=== PATIENT | female | born 2000 | race Caucasian/White ===

== ENCOUNTER 2024-06-30 12:46 | Outpatient (CLI) | payer OTHER, SELFPAY ==
--- NOTE | ~2024-06-30 | US_ITS ---
EXAMINATION: US OB <= 14 weeks fetus DATE: 06/30/2024 13:03 INDICATION: Missed . TECHNIQUE: Real-time transabdominal pelvic ultrasound was performed. COMPARISON: Ultrasound 06/23/2024 FINDINGS: The uterus measures 9.0 x 5.0 x 6.4 cm. There is no intrauterine gestational sac. The endometrial com plex measures 9 mm in thickness. The right ovary measures 4.5 x 1.6 x 2.4 cm. The left ovary measures 2.8 x 1.5 x 2.3 cm. There is no free fluid in the pelvis. IMPRESSION: 1. No retained products of conception. Reviewed, dictated and finalized at location A. [facility]
== END 2024-06-30 12:47 | disposition home or self-care (01) ==
LOC: MICIMG 12:46
PROVIDERS: PCP Pediatrics; Visit Provider Obstetrics & Gynecology
DX: O02.1 Missed abortion (principal); Z3A.00 Weeks of gestation of pregnancy not specified
CPT/HCPCS: 76801

== ENCOUNTER 2024-07-05 09:02 | Outpatient (CLI) | payer OTHER, SELFPAY ==
--- OUTSIDE RECORDS SUMMARY | 2024-07-05 11:43 | XMS_ITS | Encounter Summary ---
Author Organization [facility] Address [address] [place] [address] Care Team Providers Care Consulting Technical Director Name Role Phone Lorenzo Martin MD Primary Care Provider [phone] Encounter Details Date Type Department Care Team (Late st Contact Info) Description 05/09/2020 Prep for Procedure [facility] Day [facility] [address] [place] [address] [place] [address] [facility] [address] [place] [address] Social History Tobacco Use Types Packs/Day Years Used Date Smoking Tobacco: Never Smokeless Tobacco: Never Alcohol Use Standard Drinks/Week Comments No 0 (1 standard drink = 0.6 oz pur e alcohol) AUDIT-C Answer Date Recorded Frequency of Alcohol Consumption Never 08/18/2018 Average Number of Drinks Not on file 019 Frequency of Binge Drinking Not on file 06/2018 PHQ-2 Answer Date Recorded PHQ-2 Score 0 07/06/2019 Education Answer Date Recorded What is the highest level of school you have completed or the highest degree you have received? Some college, no degree 07/06/2019 Comments No Sex and Gender Information Value Date Recorded Sex Assigned at Female 06/07/2024 8:33 AM WRAPPER HAND Legal Sex Female 8:52 PM CDT Gender Identity Not on file Sexual Orientation Not on file COVID-19 Exposure Response Date Recorded In the last month, have you been in contact with someone who was confirmed or suspected to have Coronavirus / COVID-19? No / Unsure 04/09/2020 6:27 AM WRAPPER HAND documented as of this encounter Plan of Treatment Not on file documented as of this encounter Results * PRE-SURGICAL/PRE-PROCEDURE CORONAVIRUS (COVID 19) (05/14/2020 8:00 AM WRAPPER HAND) CORONAVIRUS SARS COV 2 PCR (RESP) NOT DETECTED NOT DETECTED 05/15/2020 2:37 PM WRAPPER HAND [facility] Comment: A Not Detected (negative) test result for this test means that SARS- CoV-2 RNA was not present in the specimen above the limit of detection. A negative result does not rule out the possibility of COVID-19 and should not be used as the sole basis for treatment or patient management decisions. If COVID-19 is still suspected, based on exposure history together with other clinical findings, re-testing should be considered in consultation with public health authorities. Laboratory test results should always be considered in the context of clinical observations and epidemiological data in making a final diagnosis and patient management decisions. Please review the Fact Sheets and FDA authorized labeling available for health care providers and patients using the following websites: https://www.[employer].com/home/Covid-19/HCP/Quest[facility]/fact- sheet.html https://www.[employer] Game/home/Covid-19/Patients/ Quest[employer]/fact-sheet.html This test has been authorized by the FDA under an Emergency Use Authorization (EUA) for use by authorized laboratories. Due to the current public health emergency, [facility] is receiving a high volume of samples from a wide variety of swabs and media for COVID-19 testing. In order to serve patients during this public health crisis, samples from appropriate clinical sources are being tested. Negative test results derived from specimens received in non-commercially manufactured viral collection and transport media, or in media and sample collection kits not yet authorized by FDA for COVID-19 testing should be cautiously evaluated and the patient potentially subjected to extra precautions such as additional clinical monitoring, including collection of an additional specimen. Methodology: Nucleic Acid Amplification Test (NAAT) includes RT-PCR or TMA Additional information about COVID-19 can be found at the [facility] website: www.Park[employer].com/Covid19. Test performed at [facility] [address] [place] [address] Director: SUSAN DAWSON DO,MPH FIRST TEST NO 05/14/2020 1:24 PM WRAPPER HAND [facility] EMPLOYED IN HEALTHCARE NO 05/14/2020 1:24 PM WRAPPER HAND [facility] SYMPTOMATIC DEFINED BY CDC NO 05/14/2020 1:24 PM WRAPPER HAND [facility] DATE OF SYMPTOM ONSET UNKNOWN 05/14/2020 1:28 PM WRAPPER HAND [facility] HOSPITALIZATION STATUS NO 05/14/2020 1:24 PM WRAPPER HAND [facility] PATIENT IN ICU NO 05/14/2020 1:24 PM WRAPPER HAND [facility] RESIDENT OF [facility] NO 05/14/2020 1:24 PM WRAPPER HAND [facility] NOT 05/14/2020 1:24 PM WRAPPER HAND [facility] PATIENT'S RACE WHITE OR 05/14/2020 1:24 PM WRAPPER HAND [facility] ETHNICITY NONHISPANIC 05/14/2020 1:24 PM WRAPPER HAND [facility] SOURCE (QST) NASOPHARYNGEAL SWAB 05/14/2020 1:24 PM WRAPPER HAND [facility] NASOPHARYNGEAL SWAB / Unknown 05/14/2020 8:00 AM WRAPPER HAND us Martín Emerson MD MICROBIOLOGY - GENERAL ORDERABLES Final Result [facility] [address] [place] [address], [facility] [address] [place] [address], documented in this encounter Visit Diagnoses Diagnosis Pre-op testing- Primary Preoperative examination, unspecified documented in this encounter Additional Health Concerns Infection Onset Date Last Indicated Resolved Time COVID-19 Rule Out 05/14/2020 05/14/2020 05/15/2020 2:38 PM WRAPPER HAND documented as of this encounter Care Teams Consulting Technical Director Relationship Specialty [place] [address] [place] [address] PCP - General FAMILY PRACTICE 08/05/18 documented as of this encounter
--- OUTSIDE RECORDS SUMMARY | 2024-07-05 11:43 | XMS_ITS | Encounter Summary ---
Author Organization [facility] Address [address] [place] [address] Care Team Providers Care Molasses Preparer Name Role Phone Lorenzo Martin MD Primary Care Provider [phone] Encounter Details Date Type Department Care Team (Late st Contact Info) Description 04/07/2020 Prep for Procedure [facility] Day [facility] [address] [place] [address] Martín [place] [address] [facility] [address] [place] [address] Social History Tobacco Use Types Packs/Day Years [...] Sex Assigned at Female 06/07/2024 8:33 AM JEWEL HOLE GAUGER Legal Sex Female 8:52 PM CDT Gender Identity Not on file Sexual Orientation Not on file COVID-19 Exposure Response Date Recorded In the last month, have you been in contact with someone who was confirmed or suspected to have Coronavirus / COVID-19? No / Unsure 04/09/2020 6:27 AM JEWEL HOLE GAUGER documented as of this encounter Plan of Treatment Not on file documented as of this encounter Results * PRE-SURGICAL/PRE-PROCEDURE CORONAVIRUS (COVID 19) (04/09/2020 9:23 AM JEWEL HOLE GAUGER) CORONAVIRUS SARS COV 2 PCR (RESP) NOT DETECTED NOT DETECTED 04/10/2020 1:46 PM JEWEL HOLE GAUGER [facility] Comment: A Not Detected (negative) test result [...] providers and patients using the following websites: https://www.[employer].com/home/Covid-19/HCP/QuestIVD/fact- sheet.html https://www.[employer]/home/Covid-19/Patients/ Quest[facility]D/fact-sheet.html This test has been authorized by the FDA under an Emergency Use Authorization (EUA) for use by authorized laboratories. Due to the current public health emergency, [facility] is receiving a high volume of samples [...] about COVID-19 can be found at the [facility] website: www.Beyond Alpha.com/Covid19. Test performed at [facility] [address] [place] [address] Director: SUSAN DAWSON DO,MPH FIRST TEST YES 04/09/2020 6:28 AM JEWEL HOLE GAUGER [facility] EMPLOYED IN HEALTHCARE NO 04/09/2020 6:28 AM [facility] SYMPTOMATIC DEFINED BY CDC NO 04/09/2020 6:28 AM JEWEL HOLE GAUGER [facility] DATE OF SYMPTOM ONSET UNKNOWN 04/09/2020 9:35 AM JEWEL HOLE GAUGER [facility] HOSPITALIZATION STATUS NO 04/09/2020 6:28 AM JEWEL HOLE GAUGER [facility] PATIENT IN ICU NO 04/09/2020 6:28 AM [facility] RESIDENT OF [facility] NO 04/09/2020 6:28 AM [facility] NOT 04/09/2020 6:28 AM [facility] PATIENT'S RACE WHITE OR 04/09/2020 6:28 AM [facility] ETHNICITY NONHISPANIC 04/09/2020 6:28 AM [facility] SOURCE (QST) NASOPHARYNGEAL SWAB 04/09/2020 6:28 AM [facility] NASOPHARYNGEAL SWAB / Unknown 04/09/2020 9:23 AM JEWEL HOLE GAUGER us Martín Emerson MD MICROBIOLOGY - GENERAL ORDERABLES Final Result [facility] [address] [place] [address], [facility] [address] [place] [address], documented in this encounter Visit Diagnoses Diagnosis Pre-op testing- Primary Preoperative examination, unspecified documented in this encounter Additional Health Concerns Infection Onset Date Last Indicated Resolved Time COVID-19 Rule Out 04/09/2020 04/09/2020 04/10/2020 1:46 PM JEWEL HOLE GAUGER COVID-19 Rule Out 05/14/2020 05/14/2020 05/15/2020 2:38 PM JEWEL HOLE GAUGER documented as of this encounter Care Teams Molasses Preparer Relationship Specialty [place] [address] [place] [address] PCP - General FAMILY PRACTICE 08/05/18 documented as of this encounter
--- OUTSIDE RECORDS SUMMARY | 2024-07-05 11:43 | XMS_ITS | Encounter Summary ---
Author Organization [facility] Address [address] [place] [address] Care Team Providers Care Automation And Controls Supervisor Name Role Phone Lorenzo Martin MD Primary Care Provider [phone] Encounter Details Date Type Department Care Team (Late st Contact Info) Description 07/12/2014 Abstract [facility] CONVERSION [address] [place] [address] , Generic [facility] Social History Tobacco Use Types Packs/Day Years Used Date Smoking Tobacco: Never Assessed Comments Unknown Sex and Gender Information Value Date Recorded Sex Assigned at Female 06/07/2024 8:33 AM GEOTECHNICAL DEPARTMENT MANAGER Legal Sex Female 8:52 PM CDT Gender Identity Not on file Sexual Orientation Not on file documented as of this encounter Plan of Treatment Not on file documented as of this encounter Visit Diagnoses Not on filedocumented in this encounter Additional Health Concerns Infection Onset Date Last Indicated Resolved Time COVID-19 Rule Out 04/09/2020 04/09/2020 04/10/2020 1:46 PM GEOTECHNICAL DEPARTMENT MANAGER COVID-19 Rule Out 05/14/2020 05/14/2020 05/15/2020 2:38 PM GEOTECHNICAL DEPARTMENT MANAGER documented as of this encounter Care Teams Automation And Controls Supervisor Relationship Specialty [place] [address] [place], [place] [id number] PCP - General FAMILY PRACTICE 08/05/18 documented as of this encounter
--- OUTSIDE RECORDS SUMMARY | 2024-07-05 11:43 | XMS_ITS | Encounter Summary ---
Author Organization [facility] Address [address] [place] [address] Care Team Providers Care Senior Security Analyst Name Role Phone Lorenzo Martin MD Primary Care Provider [phone] Encounter Details Date Type Department Care Team (Late st Contact Info) Description 08/20/2023 Availendart Message Enc [facility] Family & Internal Medicine [address] [phone] Lorenzo Martin MD [address] [place] [address] Jayashree Brooks - neck/shoulder pain Social History Tobacco Use Types Packs/Day Years Used Date Smoking Tobacco: Never Smokeless Tobacco: Never Alcohol Use Standard Drinks/Week Comments Yes 0 (1 standard drink = 0.6 oz pur e alcohol) occasional AUDIT-C Answer Date Recorded Frequency of Alcohol Consumption Never 08/18/2018 Average Number of Drinks Not on file 019 Frequency of Binge Drinking Not on file 06/2018 PHQ-2 Answer Date Recorded PHQ-2 Score - If the patient scores above 3, please move on to questions 3-9 0 12/14/2021 Education Answer Date Recorded What is the highest level of school you have completed or the highest degree you have received? Some college, no degree 07/06/2019 Comments No Sex and Gender Information Value Date Recorded Sex Assigned at Female 06/07/2024 8:33 AM DROSSER Legal Sex Female 8:52 PM CDT Gender Identity Not on file Sexual Orientation Not on file documented as of this encounter Progress Notes * Shelbie Sommer RN - 08/21/2023 11:49 AM CDT Please advise. Thank you! * Darlene Raoy RN - 08/21/2023 10:56 AM CDT [place] patient. documented in this encounter Plan of Treatment Not on file documented as of this encounter Visit Diagnoses Not on filedocumented in this encounter Additional Health Concerns Assessment Noted Time PHQ-9 Depression Total Score: 0 12/15/19 22 1:01 PM CDT documented as of this encounter Care Teams Senior Security Analyst Relationship Specialty [place] [address] [place] [address] PCP - General FAMILY PRACTICE 08/05/18 documented as of this encounter
--- OUTSIDE RECORDS SUMMARY | 2024-07-05 11:43 | XMS_ITS | Clinical Summary ---
Author Organization [facility] Address [address] [place] [address] Care Team Providers Care Prepared Foods Service Team Member Name Role Phone Lorenzo Martin MD Primary Care Provider [phone] Allergies No known active allergies Medications No known medications Active Problems Problem Noted Date Diagnosed Date Gastritis determined by endoscopy 05/17/2020 Epigastric pain 04/03/2020 Overview (04/03/2020): Added automatically from request for surgery [id number] Sprain of interphalangeal joint of left thumb Hand joint pain 02/24/2012 Closed fracture of shaft of radius with ulna 08/2008 Resolved Problems Problem Noted Date Diagnosed Date Resolved Date Routine or child health check 02/24/2012 01/28/2020 Encounters Date Type Department Care Team Description 06/07/2024 8:30 AM LOGISTICAL ENGINEER - 06/07/2024 11:59 PM [facility] En[facility] [address] [place] [address] Jorge Telles MD Discharge Disposition: Home or Self Care (Routine Discharge) 06/07/2024 Orders Only [facility] [address] [place] [address] Jorge Telles MD 06/07/2024 Travel from Last 3 Months Immunizations Name Administration Dates Next Due Dtap (Acel-Immune) 2000,2000 Dtap (Generic) 2000,2000 Fluzone 6 Months+ Quad (0.5 mL Prefilled Syringe) 03/13/2020(Deferred: Patient Refused) HPV 05/14/2012,12/24/2011,10/22/2011 HPV4 (Gardasil) 05/14/2012,12/24/2011,10/22/2011 Hib-Hepatitis B (Comvax) 2000,2000 Influenza Adult (Generic) 03/04/2019 Meningococcal (Menactra) 02/07/2017,10/22/2011 Meningococcal Vac A,C,Y,W-135 Sc 02/07/2017,09/2011 Polio IPV (Ipol) 2000,2000 Polio Ipv (Generic) 2000,2000 Tdap (Adacel) 06/17/2022 Tdap (Generic) 10/22/2011 Family History Medical History Relation Comments Cancer Father Diabetes Maternal Grandfather Cancer Mother Hypertension Mother Diabetes Paternal Grandmother Relation Status Comments Father Alive Maternal Grandfather Mother Alive Paternal Grandmother Social History Tobacco Use Types Packs/Day Years Used Date Smoking Tobacco: Never Passive Smoke Exposure: Never Smokeless Tobacco: Never Tobacco Cessation:Counseling Given: No Alcohol Use Standard Drinks/Week Comments Not Currently 0 (1 standard drink = 0.6 oz pur e alcohol) occasional AUDIT-C Answer Date Recorded Frequency of Alcohol Consumption Never 08/18/2018 Average Number of Drinks Not on file 019 Frequency of Binge Drinking Not on file 06/2018 PHQ-2 Answer Date Recorded Patient Health Questionnaire-2 Score 0 09/04/2023 Education Answer Date Recorded What is the highest level of school you have completed or the highest degree you have received? Some college, no degree 07/06/2019 Comments No Sex and Gender Information Value Date Recorded Sex Assigned at Female 06/07/2024 8:33 AM LOGISTICAL ENGINEER Legal Sex Female 8:52 PM CDT Gender Identity Not on file Sexual Orientation Not on file Last Filed Vital Signs Vital Sign Reading Time Taken Comments Blood Pressure 134/84 02/20/2024 7:15 AM CDT Pulse 100 02/20/2024 7:15 AM CDT Temperature 36.4 C (97.5 F) 02/20/2024 7:15 AM CDT Respiratory Rate 16 02/20/2024 7:15 AM CDT Oxygen Saturation 99% 02/20/2024 7:15 AM CDT Inhaled Oxygen Concentration - - Weight 125.6 kg (277 lb) 02/20/2024 7:15 AM CDT Height 167.6 cm (5' 6 ) 02/20/2024 7:15 AM CDT Body Mass Index 44.71 02/20/2024 7:15 AM CDT Plan of Treatment Health Maintenance Due Date Last Done Comments Cervical Cancer Screening Pap Smear (Age 21 to 29) Every 3 Years 2000 Hepatitis B Vaccines (3 of 3 - 3-dose series) 2000 2000, 2000 Chlamydia Screening Females ages 16-24 2016 Hepatitis C 01/13/2018 Annual Physical 10/11/2022 10/11/2021, 08/18/2018 COVID-19 Vaccine ( season) 2024 05/03/2021, 08/09/2020, 07/18/2020 Influenza Adult (#1) 2024 03/04/2019 PHQ-2 (Physician [place]) 05/19/2024 09/04/2023 Cervical Cancer Screening 10/14/2024 Po stponed from 2000 (Going to Outside Clinic) DTaP, Tdap and Td Vaccines (5 - Td or Tdap) 06/17/2032 06/17/2022, 10/22/2011, 2000, Additional history exists HPV Vaccines Completed 05/14/2012, 04/19, 12/24/2011, Additional history exists Meningococcal Vaccine Aged Out 02/07/2017 , 02/07/2017, 10/22/2011, Additional history exists No longer eligible based on patient's age to complete this topic Meningococcal B Vaccine Aged Out No l onger eligible based on patient's age to complete this topic Pneumococcal Vaccine: Pediatrics (0 to 5 Years) and At-Risk Patients (6 to 64 Years) Aged Out No longer eligible based on patient's age to complete this topic RSV Immunizations Under 20 Months Aged Out No longer eligible based on patient's age to complete this topic Procedures Procedure Name Priority Date/Time Associated Diagnosis Comments ANTIBODY SCREEN Routine 06/07/2024 9:53 AM LOGISTICAL ENGINEER Other specified conditions associated with female genital organs and menstrual cycle HC BLOOD TYPING ABO Routine 06/07/2024 9 :53 AM LOGISTICAL ENGINEER Other specified conditions associated with female genital organs and menstrual cycle GLUCOSE 1 HR PP Routine 06/07/2024 9:53 AM LOGISTICAL ENGINEER Other specified conditions associated with female genital organs and menstrual cycle HC PARVOVIRUS AB-90 Routine 06/07/2024 9 :53 AM LOGISTICAL ENGINEER Other specified conditions associated with female genital organs and menstrual cycle HCG QUANT (SERUM)-CHORIONIC GONADOTROPIN Routine 06/07/2024 9:53 AM LOGISTICAL ENGINEER Other specified conditions associated with female genital organs and menstrual cycle HIV 1 ANTIGEN(S), WITH HIV-1 AND HIV-2 ANTIBODIES Routine 06/07/2024 9:53 AM LOGISTICAL ENGINEER Other specified conditions associated with female genital organs and menstrual cycle RUBELLA IGG Routine 06/07/2024 9:53 AM LOGISTICAL ENGINEER Other specified conditions associated with female genital organs and menstrual cycle SYPHILIS AB (DIAGNOSTIC) WITH CASCADING REFLEX Routine 06/07/2024 9:53 AM LOGISTICAL ENGINEER Other specified conditions associated with female genital organs and menstrual cycle CBC W/DIFF AUTOMATED Routine 06/07/2024 9:53 AM LOGISTICAL ENGINEER Other specified conditions associated with female genital organs and menstrual cycle CMV ANTIBODY IGG Routine 06/07/2024 9:53 AM LOGISTICAL ENGINEER Other specified conditions associated with female genital organs and menstrual cycle HEPATITIS B SURFACE AG, EIA Routine 06/07/2024 9:53 AM LOGISTICAL ENGINEER Other specified conditions associated with female genital organs and menstrual cycle VARICELLA ZOSTER IGG Routine 06/07/2024 9:53 AM LOGISTICAL ENGINEER Other specified conditions associated with female genital organs and menstrual cycle URINE BACTERIA CULTURE Routine 06/07/2024 9:01 AM LOGISTICAL ENGINEER Other specified conditions associated with female genital organs and menstrual cycle from Last 3 Months Results * SYPHILIS AB (DIAGNOSTIC) WITH CASCADING REFLEX (06/07/2024 9:53 AM LOGISTICAL ENGINEER) SYPHILIS IGG IGM AB NON-REACTI VE NON-REACTI VE 06/07/2024 2:06 PM LOGISTICAL ENGINEER [facility] Comment: No serologic evidence of syphilis. No follow-up necessary unless clinically indicated. 06/07/2024 9:53 AM LOGISTICAL ENGINEER us Jorge Telles MD LABORATORY Final Result [facility] [address] [place] [address], [place] [phone] * GLUCOSE 1 HR PP (06/07/2024 9:53 AM LOGISTICAL ENGINEER) Pathologist [facility] GLUCOSE 1 HOUR POST DOSE 123 70 - 130 MG/DL 06/07/2024 10:25 AM LOGISTICAL ENGINEER [facility] 06/07/2024 9:53 AM LOGISTICAL ENGINEER us Jorge Telles MD LABORATORY Final Result [facility] [address] [place] [address], [place] [phone] * HIV 1 ANTIGEN(S), WITH HIV-1 AND HIV-2 ANTIBODIES (06/07/2024 9:53 AM LOGISTICAL ENGINEER) Pathologist [facility] HIV 1/2 AB+ HIV1 P24 AG NON-REACTI VE NON-REACTI VE 06/07/2024 2:35 PM LOGISTICAL ENGINEER [facility] 06/07/2024 9:53 AM LOGISTICAL ENGINEER us Jorge Telles MD LABORATORY Final Result [facility] [address] [place] [address], [place] [phone] * VARICELLA ZOSTER IGG (06/07/2024 9:53 AM LOGISTICAL ENGINEER) VARICELLA ZOSTER IGG EIA POSITIVE 06/08/2024 1:17 PM LOGISTICAL ENGINEER [facility] Comment:IN THE ABSENCE OF AC MEGHANN SYMPTOMS, A POSITIVE RESULT SUGGESTS PAST IMMUNITY. 06/07/2024 9:53 AM LOGISTICAL ENGINEER us Jorge Telles MD LABORATORY Final Result Performing Organization Address City/[facility] Co de Phone Number [facility] [address] [place] [address], [phone] * RUBELLA IGG (06/07/2024 9:53 AM LOGISTICAL ENGINEER) Pathologist [facility] RUBELLA IGG AB 105.60 06/07/2024 2:06 PM LOGISTICAL ENGINEER [facility] Comment: IMMUNITY PRESENT RUBELLA IGG ANTIBODY INTERPRETATION <5 IU/ML SUGGESTS NONIMMUNITY >=5 TO <10 IU/ML EQUIVOCAL RANGE >=10 IU/ML SUGGESTS IMMUNITY FOR SPECIMENS IN THE EQUIVOCAL RANGE, A NEW SPECIMEN SHOULD BE OBTAINED IN 6 WEEKS AND RETESTED FOR RUBELLA IGG ANTIBODY. ANTIBODY LEVELS IN THE EQUIVOCAL RANGE MAY BE INSUFFICIENT TO PROTECT AGAINST CLINICAL ILLNESS UPON EXPOSURE TO RUBELLA VIRUS. 06/07/2024 9:53 AM LOGISTICAL ENGINEER us Jorge Telles MD LABORATORY Final Result Performing Organization Address City/[facility]/ZIP Co de Phone Number [facility] [address] [place] [address], [place] [phone] * ANTIBODY SCREEN (06/07/2024 9:53 AM LOGISTICAL ENGINEER) Pathologist [facility] ANTIBODY SCREEN NEGATIVE 06/07/2024 11:19 AM LOGISTICAL ENGINEER [facility] 06/07/2024 9:53 AM LOGISTICAL ENGINEER Jorge Telles MD BLOOD BANK TEST ORDERABLES Ayaka l Result [facility] [address] [place] [address], * (ABNORMAL) PARVOVIRUS ANTIBODY (06/07/2024 9:53 AM LOGISTICAL ENGINEER) [facility] PARVOVIRUS B-19 IGG 5.8(H) <0.9 06/10/2024 5:22 PM LOGISTICAL ENGINEER [facility] PARVOVIRUS B-19 IGM 0.1 <0.9 06/10/2024 5:22 PM LOGISTICAL ENGINEER [facility] Comment: Reference Range: <0.9 Negative 0.9-1.1 Equivocal >1.1 Positive IgG persists for years and provides life-long immunity. Results from any one IgM assay should not be used as a sole determinant of a current or recent infection. Because IgM tests can yield false positive results and low levels of IgM antibody may persist for months post infection, reliance on a single test result could be misleading. If an acute infection is suspected, consider obtaining a new specimen and submit for both IgG and IgM testing in two or more weeks. To diagnose current infection, consider Parvovirus B19 DNA, PCR. Test Performed by [employer] [employer] [facility], [address] [place], [place] Talib Ambriz M.D., Ph.D., Director of Laboratories , [facility] [id number] 06/07/2024 9:53 AM LOGISTICAL ENGINEER Jorge Telles MD LABORATORY Final Result [facility] [address] [place], [place] , [place] [phone] * HEPATITIS B SURFACE AG, EIA (06/07/2024 9:53 AM LOGISTICAL ENGINEER) HEPATITIS B SURFACE AG NON-REACTI VE NON-REACTI VE 06/07/2024 2:12 PM LOGISTICAL ENGINEER [facility] 06/07/2024 9:53 AM LOGISTICAL ENGINEER us Jorge Telles MD LABORATORY Final Result Performing Organization Address City/[facility]/ZIP Co de Phone Number [facility] [address] [place] [address], [place] [phone] * CMV ANTIBODY IGG (06/07/2024 9:53 AM LOGISTICAL ENGINEER) CMV IGG <0.60 <0.60 U/mL 06/10/2024 5:58 PM LOGISTICAL ENGINEER [facility] Comment: U/mL Interpretation <0.60 Negative 0.60 - 0.69 Equivocal > or = 0.70 Positive A positive result indicates that the patient has antibody to CMV. It does not differentiate between an active or past infection. Test Performed by [employer] [employer] [facility], [address] [place] [address] Talib Ambriz M.D., Ph.D., Director of Laboratories , [place] [id number] 06/07/2024 9:53 AM LOGISTICAL ENGINEER us Jorge Telles MD LABORATORY Final Result Performing Organization Address City/[facility]/ZIP Co de Phone Number [facility] [address] [place], [place] , [place] [phone] * (ABNORMAL) HCG QUANT (SERUM)-CHORIONIC GONADOTROPIN (06/07/2024 9:53 AM LOGISTICAL ENGINEER) HCG QUANTITATIVE 28,146(H) 0 - 6 MIU/ML 06/07/2024 11:07 AM LOGISTICAL ENGINEER [facility] Comment: WEEKS OF REFERENCE RANGES NON- FEMALE 0-6 0.2 - 1 5 - 50 1 - 2 50 - 500 2 - 3 100 - 5000 3 - 4 500 - 10,000 4 - 5 1000 - 50,000 5 - 6 10,000 - 100,000 6 - 8 15,000 - 200,000 2 - 3 MONTHS 10,000 - 100,000 06/07/2024 9:53 AM LOGISTICAL ENGINEER us Jorge Telles MD LABORATORY Final Result Performing Organization Address [facility]/ZIP Co de Phone Number [facility] [address] [place] [address], [place] [phone] * BLOOD TYPING, ABO AND RH (06/07/2024 9:53 AM LOGISTICAL ENGINEER) ABO/RH O POSITIVE 06/07/2024 11:30 AM LOGISTICAL ENGINEER [facility] 06/07/2024 9:53 AM LOGISTICAL ENGINEER us Jorge Telles MD BLOOD BANK TEST ORDERABLES Ayaka l Result Performing Organization Address City/[facility]/ZIP Co de Phone Number [facility] [address] [place] [id number], [place] [phone] * (ABNORMAL) CBC W/DIFF AUTOMATED (06/07/2024 9:53 AM LOGISTICAL ENGINEER) WBC 11.06(H) 4.4 - 11.0 x10'3/uL 06/07/2024 10:07 AM [facility] RBC 5.00 4.50 - 5.10 x10'6/uL 06/07/2024 10:07 AM [facility] HGB 13.6 12.3 - 15.3 G/DL 06/07/2024 10:07 AM [facility] HCT 42.0 35.9 - 44.6 % 06/07/2024 10:07 AM [facility] MCV 84.0 80.0 - 96.0 FL 06/07/2024 10:07 AM [facility] MCH 27.2 25.3 - 30.9 PG 06/07/2024 10:07 AM [facility] MCHC 32.4 31.0 - 34.1 G/DL 06/07/2024 10:07 AM [facility] RDW 13.3 12.4 - 15.1 % 06/07/2024 10:07 AM [facility] PLT 350 151 - 353 x10'3/uL 06/07/2024 10:07 AM [facility] MPV 9.7 9.6 - 12.0 FL 06/07/2024 10:07 AM [facility] RBC MORPHOLOGY NORMAL 06/07/2024 10:07 AM [facility] PLT MORPH. NORMAL 06/07/2024 10:07 AM [facility] WBC MORPHOLOGY NORMAL 06/07/2024 10:07 AM [facility] LYMPHOCYTES % 31.0 15.8 - 45.0 % 06/07/2024 10:07 AM [facility] NEUTROPHILS % 58.9 42.1 - 71.9 % 06/07/2024 10:07 AM [facility] MONOCYTES % 5.7 5.7 - 12.5 % 06/07/2024 10:07 AM [facility] EOSINOPHILS 3.0 0.0 - 5.6 % 06/07/2024 10:07 AM [facility] BASOPHILS 0.5 0.0 - 1.3 % 06/07/2024 10:07 AM [facility] ABS. NEUTROPHILS 6.52(H) 1.40 - 6.00 x10'3/uL 06/07/2024 10:07 AM [facility] IMMATURE GRANS % 0.9(H) 0.0 - 0.5 % 06/07/2024 10:07 AM [facility] ABS. LYMPHOCYTES 3.43 0.80 - 4.70 x10'3/uL 06/07/2024 10:07 AM [facility] 06/07/2024 9:53 AM LOGISTICAL ENGINEER Jorge Telles MD LABORATORY Final Result Performing Organization Address [facility]/ZIP Co de Phone Number [facility] [address] [place] [address], [place] [phone] * URINE BACTERIA CULTURE (06/07/2024 9:01 AM LOGISTICAL ENGINEER) SPEC DESCRIPTION URINE CLEAN CATCH 06/07/2024 9:02 AM [facility] SPECIAL REQUESTS NO SPECIAL REQUEST 06/07/2024 9:02 AM [facility] CULTURE RESULT POLYMICROBIAL GROWTH CONSISTENT WITH NORMAL GENITAL LANA. SUSCEPTIBILITIES NOT ROUTINELY PERFORMED. 06/08/2024 8:16 AM [facility] URINE SPECIMEN OBTAINED BY CLEAN CATCH PROCEDURE / Unknown 06/07/2024 9:01 AM LOGISTICAL ENGINEER 06/07/2024 9:03 AM LOGISTICAL ENGINEER Jorge Telles MD MICROBIOLOGY - GENERAL ORDERABL ES Final Result Performing Organization Address City/[facility]/ZIP Co de Phone Number [facility] [address] [place] [address], [place] [phone] [facility] [address] [place] [address], from Last 3 Months Insurance [facility] Care Teams Prepared Foods Service Team Member Relationship Specialty [place] [address] [place] [address] PCP - General FAMILY PRACTICE 08/05/18
[2024-07-05 15:46] LABS: Beta HCG Quantitative 144.15 mIU/ML
== END 2024-07-05 09:03 | disposition home or self-care (01) ==
LOC: ANHGOSHLAB 09:03
PROVIDERS: Visit Provider Obstetrics & Gynecology
DX: O02.1 Missed abortion (principal)
CPT/HCPCS: 36415; 84702

== ENCOUNTER 2024-12-28 10:49 | Outpatient (CLI) | payer OTHER, SELFPAY ==
[2024-12-28 13:30] LABS: Hematocrit 42.6 % (37.0-47.0); Hemoglobin 13.6 g/dL (12.0-15.0); Mean Corpuscular HGB Conc 31.9 g/dl (32-36); Mean Corpuscular Hemoglobin 27.1 pg (26-34); Mean Corpuscular Volume 85.0 fl (80-100); Platelet Count Result 416 k/mm3 (150-375); Red Blood Count 5.01 M/mm3 (4.2-5.4); White Blood Count 14.6 K/mm3 (4.5-10.0)
[2024-12-28 13:39] LABS: Glucose 1 Hour PP 50gm Dose 144 mg/dL
[2024-12-28 13:47] LABS: Beta HCG Quantitative 8320.10 mIU/ML
[2024-12-28 14:00] LABS: Syphilis IgG/IgM Antibody Non-Reactive (Nonreactive)
[2024-12-28 14:05] LABS: Hepatitis B Surface Antigen Negative (Negative)
[2024-12-28 14:11] LABS: HIV 1/2 Ab P24 Ag Result Negative (Negative)
[2024-12-29 07:09] LABS: Cytomegalovirus (CMV) Ab, IgG <0.60 U/mL (0.00-0.59)
[2024-12-29 14:08] LABS: Varicella-Zoster Ab, IgM <0.91 index (0.00-0.90)
[2024-12-31 13:08] LABS: Parvovirus B19, IgG 6.7 index (0.0-0.8); Parvovirus B19, IgM 0.4 index (0.0-0.8)
== END 2024-12-28 10:50 | disposition home or self-care (01) ==
LOC: ANHGOSHLAB 10:49
PROVIDERS: Visit Provider Student in an Organized Health Care Education/Training Program
DX: N91.2 Amenorrhea, unspecified (principal)
CPT/HCPCS: 36415; 81329; 82947; 84702; 85027; 86593; 86644; 86703; 86747; 86762; 86787; 86850; 86900; 86901; 87086; 87340; G0432

== ENCOUNTER 2025-01-05 08:19 | Outpatient (CLI) | payer OTHER, SELFPAY ==
--- OUTSIDE RECORDS SUMMARY | 2025-01-05 08:26 | XMS_ITS | Encounter Summary ---
Author Organization [facility] Address [address] [place] [address] Care Team Providers Care Rim Buster Name Role Phone Lorenzo Martin MD Primary Care Provider [phone] Encounter Details Date Type Department Care Team (Late st Contact Info) Description 07/12/2014 Abstract [facility] CONVERSION [address] [place], [place] [id number] , Generic MD Adina Social History Tobacco Use Types Packs/Day Years Used Date Smoking Tobacco: Never Assessed Comments Unknown Sex and Gender Information Value Date Recorded Sex Assigned at Female 06/07/2024 8:33 AM INVASIVE PHYSICIAN Legal Sex Female 8:52 PM CDT Gender Identity Female 12/27/2024 7:28 AM CDT Sexual Orientation Not on file documented as of this encounter Plan of Treatment Not on file documented as of this encounter Visit Diagnoses Not on filedocumented in this encounter Additional Health Concerns Infection Onset Date Last Indicated Resolved Time COVID-19 Rule Out 04/09/2020 04/09/2020 04/10/2020 1:46 PM INVASIVE PHYSICIAN COVID-19 Rule Out 05/14/2020 05/14/2020 05/15/2020 2:38 PM INVASIVE PHYSICIAN documented as of this encounter Care Teams Rim Buster Relationship Specialty [place] [address] [place] [address] PCP - General FAMILY PRACTICE 08/05/18 documented as of this encounter
--- OUTSIDE RECORDS SUMMARY | 2025-01-05 08:26 | XMS_ITS | Encounter Summary ---
Author Organization [facility] Address [address] [place] [address] Care Team Providers Care Rehabilitation Center Manager Name Role Phone Lorenzo Martin MD Primary Care Provider [phone] Encounter Details Date Type Department Care Team (Late st Contact Info) Description 05/09/2020 Prep for Procedure [facility] [address] [place] [id number] [place] [address] [facility] [address] [place] [address] Social History Tobacco Use Types Packs/Day Years [...] Sex Assigned at Female 06/07/2024 8:33 AM DOG WARDEN Legal Sex Female 8:52 PM CDT Gender Identity Female 12/27/2024 7:28 AM CDT Sexual Orientation Not on file COVID-19 Exposure Response Date Recorded In the last month, have you been in contact with someone who was confirmed or suspected to have Coronavirus / COVID-19? No / Unsure 04/09/2020 6:27 AM DOG WARDEN documented as of this encounter Plan of Treatment Not on file documented as of this encounter Results * PRE-SURGICAL/PRE-PROCEDURE CORONAVIRUS (COVID 19) (05/14/2020 8:00 AM DOG WARDEN) CORONAVIRUS SARS COV 2 PCR (RESP) NOT DETECTED NOT DETECTED 05/15/2020 2:37 PM DOG WARDEN [facility] Comment: A Not Detected (negative) test result [...] providers and patients using the following websites: https://www.[employer].com/home/Covid-19/HCP/[facility]/fact- sheet.html https://www.[employer]home/Covid-19/Patients/ [facility]/fact-sheet.html This test has been authorized by the FDA under an Emergency Use Authorization (EUA) for use by authorized laboratories. Due to the current public health emergency, [facility] is receiving a high volume of samples [...] about COVID-19 can be found at the [facility] website: www.[employer]Covid19. Test performed at [facility] [place] [address] [place] [address] Director: SUSAN DAWSON DO,MPH FIRST TEST NO 05/14/2020 1:24 PM DOG WARDEN [facility] EMPLOYED IN HEALTHCARE NO 05/14/2020 1:24 PM DOG WARDEN [facility] SYMPTOMATIC DEFINED BY CDC NO 05/14/2020 1:24 PM DOG WARDEN [facility] DATE OF SYMPTOM ONSET UNKNOWN 05/14/2020 1:28 PM DOG WARDEN [facility] HOSPITALIZATION STATUS NO 05/14/2020 1:24 PM DOG WARDEN [facility] PATIENT IN ICU NO 05/14/2020 1:24 PM DOG WARDEN [facility] RESIDENT OF [facility] NO 05/14/2020 1:24 PM DOG WARDEN [facility] NOT 05/14/2020 1:24 PM DOG WARDEN [facility] PATIENT'S RACE WHITE OR 05/14/2020 1:24 PM DOG WARDEN [facility] ETHNICITY NONHISPANIC 05/14/2020 1:24 PM DOG WARDEN [facility] SOURCE (QST) NASOPHARYNGEAL SWAB 05/14/2020 1:24 PM [facility] NASOPHARYNGEAL SWAB / Unknown 05/14/2020 8:00 AM DOG WARDEN us Martín Emerson MD MICROBIOLOGY - GENERAL ORDERABLES Final Result [facility] [address] [place] [address], [facility] [address] [place] [address], documented in this encounter Visit Diagnoses Diagnosis Pre-op testing- Primary Preoperative examination, unspecified documented in this encounter Additional Health Concerns Infection Onset Date Last Indicated Resolved Time COVID-19 Rule Out 05/14/2020 05/14/2020 05/15/2020 2:38 PM DOG WARDEN documented as of this encounter Care Teams Rehabilitation Center Manager Relationship Specialty [place] [address] [place] [address] PCP - General FAMILY PRACTICE 08/05/18 documented as of this encounter
--- OUTSIDE RECORDS SUMMARY | 2025-01-05 08:26 | XMS_ITS | Encounter Summary ---
Author Organization [facility] Address [address] [place] [address] Care Team Providers Care Breakfast Manager Name Role Phone Lorenzo Martin MD Primary Care Provider [phone] Encounter Details Date Type Department Care Team (Late st Contact Info) Description 04/07/2020 Prep for Procedure [facility] [address] [place] [id number] [place] [address] [facility] [address] [place] [address] Social History Tobacco Use Types Packs/Day Years [...] Sex Assigned at Female 06/07/2024 8:33 AM TRANSFORMER MOLDER Legal Sex Female 8:52 PM CDT Gender Identity Female 12/27/2024 7:28 AM CDT Sexual Orientation Not on file COVID-19 Exposure Response Date Recorded In the last month, have you been in contact with someone who was confirmed or suspected to have Coronavirus / COVID-19? No / Unsure 04/09/2020 6:27 AM TRANSFORMER MOLDER documented as of this encounter Plan of Treatment Not on file documented as of this encounter Results * PRE-SURGICAL/PRE-PROCEDURE CORONAVIRUS (COVID 19) (04/09/2020 9:23 AM TRANSFORMER MOLDER) CORONAVIRUS SARS COV 2 PCR (RESP) NOT DETECTED NOT DETECTED 04/10/2020 1:46 PM TRANSFORMER MOLDER [facility] Comment: A Not Detected (negative) test result [...] providers and patients using the following websites: https://www.Crunched.com/home/Covid-19/HCP/Quest[employer]/fact- sheet.html https://www.[employer]/home/Covid-19/Patients/ QuestIVD/fact-sheet.html This test has been authorized by the FDA under an Emergency Use Authorization (EUA) for use by authorized laboratories. Due to the current public health emergency, [facility] is receiving a high volume of samples [...] about COVID-19 can be found at the [facility] website: www.[employer]/Covid19. Test performed at [facility] [address] [place] [address] Director: SUSAN DAWSON DO,MPH FIRST TEST YES 04/09/2020 6:28 AM TRANSFORMER MOLDER [facility] EMPLOYED IN HEALTHCARE NO 04/09/2020 6:28 AM [facility] SYMPTOMATIC DEFINED BY CDC NO 04/09/2020 6:28 AM TRANSFORMER MOLDER [facility] DATE OF SYMPTOM ONSET UNKNOWN 04/09/2020 9:35 AM [facility] HOSPITALIZATION STATUS NO 04/09/2020 6:28 AM [facility] PATIENT IN ICU NO 04/09/2020 6:28 AM [facility] RESIDENT OF [facility] NO 04/09/2020 6:28 AM [facility] NOT 04/09/2020 6:28 AM [facility] PATIENT'S RACE WHITE OR 04/09/2020 6:28 AM [facility] ETHNICITY NONHISPANIC 04/09/2020 6:28 AM [facility] SOURCE (QST) NASOPHARYNGEAL SWAB 04/09/2020 6:28 AM [facility] NASOPHARYNGEAL SWAB / Unknown 04/09/2020 9:23 AM TRANSFORMER MOLDER us Martín Emerson MD MICROBIOLOGY - GENERAL ORDERABLES Final Result [facility] [address] [place] [address], [facility] [address] [place] [address], documented in this encounter Visit Diagnoses Diagnosis Pre-op testing- Primary Preoperative examination, unspecified documented in this encounter Additional Health Concerns Infection Onset Date Last Indicated Resolved Time COVID-19 Rule Out 04/09/2020 04/09/2020 04/10/2020 1:46 PM TRANSFORMER MOLDER COVID-19 Rule Out 05/14/2020 05/14/2020 05/15/2020 2:38 PM TRANSFORMER MOLDER documented as of this encounter Care Teams Breakfast Manager Relationship Specialty [place] [address] [place] [address] PCP - General FAMILY PRACTICE 08/05/18 documented as of this encounter
--- OUTSIDE RECORDS SUMMARY | 2025-01-05 08:26 | XMS_ITS | Encounter Summary ---
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 Thank you! * Darlene Rayo RN - 08/21/2023 10:56 AM CDT [place] patient. documented in this encounter Plan of Treatment Not on file documented as of this encounter Visit Diagnoses Not on filedocumented in this encounter Additional Health Concerns Assessment Noted Time PHQ-9 Depression Total Score: 0 12/15/19 22 1:01 PM CDT documented as of this encounter Care Teams Access Registrar Relationship Specialty [place] [address] [place] [address] PCP - General FAMILY PRACTICE 08/05/18 documented as of this encounter
--- OUTSIDE RECORDS SUMMARY | 2025-01-05 08:26 | XMS_ITS | Clinical Summary ---
Author Organization [facility] Address [facility] [place] [address] Care Team Providers Care Administrative Office Assistant Name Role Phone Lorenzo Martin MD Primary Care Provider [phone] Allergies No known active allergies Medications vitamin, low iron, ( VITAMIN WITH IRON) 27-0.8 mg tablet Take 1 tablet by mouth daily. Active fluticasone propionate (FLONASE) 50 MCG/ACT nasal sprayIndicatio ns:Eustachian tube dysfunction, bilateral 2 sprays by Nasal route daily for 30 days. 2 puffs each nostril twice a day for 3 days, then 2 puffs each nostril daily 16 g 1 5 01/27/20 25 Active cefdinir (OMNICEF) 300 MG Cap capsuleIndicat ions:Non-recur rent acute serous otitis media of both ears,Acute non-recurrent frontal sinusitis Take 1 capsule (300 mg total) by mouth 2 (two) times daily. 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 05/17/2020 Epigastric pain 04/03/2020 Overview (04/03/2020): Added automatically from request for surgery [id number] Sprain of interphalangeal joint of left thumb Hand joint pain 02/24/2012 Closed fracture of shaft of radius with ulna 08/2008 Comments Yes Resolved Problems Problem Noted Date Diagnosed Date Resolved Date Routine infant or child health check 02/24/2012 01/28/2020 Encounters Date Type Department Care Team Description 12/27/2024 7:40 AM CDT Office Visit [facility] Family & Internal Medicine [address] [address] Kyrie Sagastume PA Earache (Pt c/o bilateral ear pain worse left ear ) 12/27/2024 Travel from Last 3 Months Immunizations Immunization Administration Dates Next Due Dtap (Acel-Immune) 2000,2000 [...] Date Recorded Patient Health Questionnaire-2 Score 0 12/27/2024 Education Answer Date Recorded What is the highest level of school you have completed or the highest degree you have received? 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 Sex Female 8:52 PM CDT Gender Identity Female 12/27/2024 7:28 AM CDT Sexual Orientation Not on file Last Filed Vital Signs Vital Sign Reading Time Taken Comments Blood Pressure 134/81 12/27/2024 7:26 AM CDT Pulse 106 12/27/2024 7:26 AM CDT Temperature 37 C (98.6 F) 12/27/2024 7:26 AM CDT Respiratory Rate 16 12/27/2024 7:26 AM CDT Oxygen Saturation 99% 12/27/2024 7:26 AM CDT Inhaled Oxygen Concentration - - Weight 128.8 kg (284 lb) 12/27/2024 7:26 AM CDT Height 167.6 cm (5' 6) 12/27/2024 7:26 AM CDT Body Mass Index 45.84 12/27/2024 7:26 AM CDT Plan of Treatment Health Maintenance Due Date Last Done Comments Cervical Cancer Screening Pap Smear (Age 21 to 29) Every 3 Years 2000 Cervical Cancer Screening 2000 Hepatitis B Vaccines (3 of 3 - 3-dose series) 2000 2000, 2000 Chlamydia Screening Females ages 16-24 2016 Hepatitis C 01/13/2018 Annual Physical 10/11/2022 10/11/2021, 08/18/2018 COVID-19 Vaccine ( season) 2024 05/03/2021, 08/09/2020, 07/18/2020 DTaP, Tdap and Td Vaccines (5 - Td or Tdap) 06/17/2032 06/17/2022, 10/22/2011, 2000, Additional history exists RSV Immunization or 60+ Years (1 - 1-dose 75+ series) 01/13/2075 HPV Vaccines Completed 05/14/2012, 04/19, 12/24/2011, Additional history exists Meningococcal Vaccine Aged Out 02/07/2017 , 02/07/2017, 10/22/2011, Additional history exists No longer eligible based on patient's age to complete this topic PHQ-2 (Physician Henrietta) Completed 12/27/2024 Meningococcal B Vaccine Aged Out No l onger eligible based on patient's age to complete this topic Pneumococcal Vaccine: Pediatrics (0 to 5 Years) and At-Risk Patients (6 to 49 Years) Aged Out No longer eligible based on patient's age to complete this topic RSV Immunizations Under 20 Months Aged Out No longer eligible based on patient's age to complete this topic Insurance [facility] Care Teams Administrative Office Assistant Relationship Specialty [place] [address] [place] [address] PCP - General FAMILY PRACTICE 08/05/18
[2025-01-05 13:08] LABS: Glucose 1 Hour Gest 131 mg/dL (>/=180)
[2025-01-05 13:10] LABS: Glucose 3 Hour Gest 88 mg/dL (>/=140)
[2025-01-05 13:36] LABS: Glucose 2 Hour Gest 114 mg/dL (>/= 155)
[2025-01-05 15:23] LABS: Glucose Fasting Gestational 103 mg/dL (>/=95)
== END 2025-01-05 08:20 | disposition home or self-care (01) ==
LOC: ANHGOSHLAB 08:20
PROVIDERS: Visit Provider Student in an Organized Health Care Education/Training Program
DX: R73.09 Other abnormal glucose (principal)
CPT/HCPCS: 36415; 82948; 82951; 82952

== ENCOUNTER 2025-04-04 15:47 | Outpatient (CLI) | payer OTHER, SELFPAY ==
--- NOTE | ~2025-04-04 | US_ITS ---
EXAM/PROCEDURE: US OB /maternal detail HISTORY: Z34.90 - Encounter for supervision of normal , u... COMPARISON: None available. TECHNIQUE: anatomic review performed. FINDINGS: A single viable intrauterine gestation is present with heart rate of 173 bpm Presentation: Breech Placenta: Fundal with inferior tip proximal to 6.9 cm removed from the internal os. The cervix appears closed and measures 4.7 cm. Visualized portions of the head and neck including ventricles, cerebellum the nuchal fold, upper lip appear within normal limits. Visualized portions of the spine, diaphragm, stomach kidneys urinary bladder three-vessel cord and extremities appear normal. Four-chamber view of the heart, demonstrates no obvious abnormality but is suboptimal with incomplete visualization of the 4 chambers. Page 25. EGA by dates and ultrasound 19 weeks 3 days and 19 weeks 5 days EDC by dates and ultrasound August 26 and August 24, 2025 Biometric ratios are concordant. EFW: 307 g or 11 ounces EFW percentile 61.1% Amniotic fluid volume appears within normal limits. IMPRESSION: Single viable intrauterine gestation with concordant dates and no anomaly identified. Four-chamber view of the heart is suboptimal. Follow directed examination of the heart is recommended. Reviewed, dictated and finalized at location A. MATIC JACKETER IMPRESSION: Single viable intrauterine gestation with concordant dates and no anomaly ident ified. Four-chamber view of the heart is suboptimal. Follow directed examinatio n of the heart is recommended.
== END 2025-04-04 15:48 | disposition home or self-care (01) ==
LOC: MICIMG 15:47
PROVIDERS: PCP Student in an Organized Health Care Education/Training Program; Visit Provider Student in an Organized Health Care Education/Training Program
DX: Z34.90 Encounter for supervision of normal pregnancy, unspecified, unspecified trimester (principal)
CPT/HCPCS: 76805